=== PATIENT | female | born 1980 | race Caucasian/White ===

== ENCOUNTER 2022-12-15 07:49 | Outpatient (CLI) | payer OTHER, SELFPAY ==
--- NOTE | 2022-12-15 07:58 | ECG_ITS ---
Measurements Intervals [place] Rate: 71 P: 14 [place]: 162 QRS: 67 QRSD: 82 T: 39 QT: 372 QTc: 406 Interpretive Statements SINUS RHYTHM BASELINE ARTIFACT- V5-V6 NORMAL ECG NO PREVIOUS ECG AVAILABLE FOR COMPARISON Electronically Signed On 12-15-2022 10:28:19 CDT by Jarad Moody D.O.
[2022-12-15 08:49] LABS: Hematocrit 39.3 % (37.0-47.0); Hemoglobin 12.8 g/dL (12.0-15.0)
== END 2022-12-15 07:50 | disposition home or self-care (01) ==
PROVIDERS: Anesthesiology; Visit Provider Surgery Plastic and Reconstructive Surgery
DX: Z41.1 Encounter for cosmetic surgery (principal)
CPT/HCPCS: 36415; 85014; 85018; 93005

== ENCOUNTER 2022-12-18 00:50 | Day surgery (SDC) | payer OTHER, SELFPAY ==
[2022-12-10 15:33] VITALS: BMI 23.1
--- NOTE | 2022-12-10 15:37 | PC.NURSE ---
Report to the Outpatient Waiting Room, entrance under the green pavilion located off [facility], at time 6:30 on date 12/18/22. Planned Procedure Time: 8:30. Time changes happen often and if your time is changed the preop area will call you the afternoon before. - You and your visitor will be asked to self-screen and do not enter if you have any COVID symptoms. - A mask is optional within the hospital at this time. Patients may have clear liquids (water, carbonated beverages, clear teas, apple juice) until 3 hours prior to surgery (5:30) with a maximum of 20 ounces. - No food from midnight until time of surgery Take the following medications with a SIP of water the morning of surgery: NONE DO NOT STOP ANY OF YOUR OTHER PRESCRIPTION MEDICATIONS PRIOR TO SURGERY?EXCEPT THE FOLLOWING Medications to discontinue per physician: VITAMINS/SUPPLEMENTS Date to take last dose: 12/14/22 Please no make-up, nail micronesian, hairspray, perfume, deodorant, or body powder the day of surgery. No jewelry (including any body piercings) or valuables the day of surgery, leave them at home. Please take a shower or bath the night before, or the morning of, surgery with an antibacterial soap. Wear comfortable, loose fitting clothing. - Jewelry must be removed prior to entering the operating room. Rings and piercings that are not removed may be cut off. - The hospital will not accept responsibility for valuables. - Please leave all valuables, including medications, at home the day of surgery. If you are going home after surgery, a licensed [facility] driver must drive you home. - NO public transportation without another adult if you receive anesthesia. - We recommend that an adult stay with you for 24 hours following discharge. - We also recommend that you do not drive, make important decision, drink alcoholic beverages, or take any drugs that were not prescribed by your health care provider for at least 24 hours after your discharge time. Follow any additional instructions given to you from your surgeon. If you or anyone in your household have experienced Covid symptoms in the past week, please notify your surgeon or the nurse liaison at the phone number below for possible testing. Telephone instructions given to PT - AILEEN RICARDO and asked if any additional questions and then verbalized understanding. Patient advised to call surgeon office or pre surgery nurse liaison [phone] if any additional questions.
--- NOTE | 2022-12-17 11:38 | P.PNAN_ITS ---
Anes - Initial Pre Proc Eval Procedure: Operation Date: 12/18/22 08:30 Proposed Procedures p Abdominoplasty with Liposuction - Tj Venegas MD s Bilateral Breast Implant Exchange, - Tj Venegas MD s Bilateral Breast Mastopexy - Tj Venegas MD Date/Time: 12/17/22 11:38 Surgeon: Tj Venegas MD Pre Op Diagnosis: skin laxity Patient Data Age: 42 Gender: F Height: 1.63 m Weight: 61.25 kg Allergies Allergy/AdvReac Type Severity Reaction Status Date / Time codeine AdvReac Unknown Verified 12/10/22 15:32 Home Medications Medication Instructions Recorded Confirmed Type magnesium 250 mg tablet 250 mg PO DAILY 12/10/22 12/10/22 History multivitamin 1 tablet PO DAILY 12/10/22 12/10/22 History Patient hx anesthesia problems: none Family hx anesthesia problems: none Results Review: All pre-operative results and documents have been reviewed as part of the pre- operative evaluation. [facility] Social History Social History Smoking packs per day: 0.5 Smoking cigarettes per day: 10.0 Years smoked: 10 Smoking pack-years: 5.00 Smoking status: Former smoker Tobacco type: cigarettes Smoking end date: 08/02/17 Alcohol intake: current Drinks per week: 3 Substance use: never Substance use type: does not use Living arrangements: with family Additional living arrangements comments: CHILDREN Spiritual care concerns: No Anes - Eval Final PreProcedure Day of Procedure 12/17/22 11:38 Patient weight: normal Heart: regular rate and rhythm Lungs: clear to auscultation and normal air movement Airway: Mallampati scale class II Neurological: alert and oriented Last oral intake: >/= 8 hours ASA classification: II Emergent: no Anesthetic plan: proceed Anesthesia type and monitoring: general LMA Results Review: All pre-operative results and documents have been reviewed as part of the pre- operative evaluation. Informed Consent: The patient's anesthetic plan and its attendant risks and benefits were discussed with the patient/family/POA. Questions were solicited and answers provided to the satisfaction of the patient/family/POA.
[2022-12-18] VITALS (9 sets, daily range): BP systolic 99–130; BP diastolic 53–82; PULSE 71–118; RESP 13–20; TEMP 36.3–37.1; O2SAT 96–100; BMI 21.8
[2022-12-18 06:48] LABS: Urine Cotinine NEGATIVE
[2022-12-18] MEDS: LACTATED RINGERS 1,000 ML 30 ML IV CONT ×2 (07:05→14:57)
--- NOTE | 2022-12-18 08:41 | WPDHPUPDATE1 ---
History and Physical Update Update Date/Time: 12/18/22 08:41 History and Physical has been reviewed, including an updated exam of the patient. There are NO changes in the patient's condition. Risks, benefits, and alternatives have been discussed and questions answered. Patient agrees to proceed with procedure.
--- NOTE | 2022-12-18 08:41 | W.PM.PROC2 ---
Procedure Note - Detailed Date of Procedure 12/18/22 Pre-op Diagnosis skin laxity Post-op Diagnosis Same Procedure Performed 1. Bilateral breast implant exchange. 2. Bilateral breast mastopexy. 3. Progressive tension abdominoplasty with suction lipectomy. Surgeon Tj Venegas MD Anesthesia General Findings Previous Implants: 68-360 saline intact No seroma Thin capsule New Implants: Bilateral Natrelle Saline 360cc filled to 390 cc Right - REF# 68-360 SN [id number] Left - REF# 68-360 SN [id number] Tissue removed: 680.6 grams Lipoaspirate: 1,000 cc Description of Procedure They are here today for the above. Previously and again today the risks, benefits, alternatives were discussed in extensive detail. I wanted them to be very realistic about the risks involved as well as expectations. We discussed aftercare and what to monitor for. I was very upfront about the risks of wound breakdown leading to loss of skin, open wounds, NAC loss, complexity / risks of repeat mastopexy, and need for additional procedures with permanent abdominal deformity. We discussed DVT/PE risks and management. Made sure answered all of their questions to their satisfaction today and consent was obtained. They were marked in the preoperative holding area with their verification. The patient was taken to the operating room placed supine on the operating table. Anesthesia was provided by anesthesiology. A Ruiz catheter was started. They were prepped and draped in a standard sterile fashion. A surgical time-out was taken. Breast 1% lidocaine and 0.25% Marcaine with epinephrine was used to provide a field block. Tegaderm nipple husain were placed. Fifteen blade used at the IMF. Dissection was continued down until the capsules were identified and incised. Findings as above. I then copiously irrigated with 3 L of saline solution on TUR tubing. Verified strict hemostasis. I then irrigated with Betadine containing solution. Using a no-touch technique and a Sloan funnel the implant was introduced into the pocket. This was closed with 2-0 PDS I tailor tacked the breast into position. Placed her in a sitting position. Verified the nipple-areolar location based on preoperative planning as well as intraoperative observations and measurements in full agreement. She was placed supine. I de-epithelialized the pedicle. I then removed the inferior central portion of the breast need making sure the implant was well protected. I elevated medial and lateral tissue flaps as well for planned closure. I closed along the IMF with 2-0 Stratafix. Along the vertical with 2-0 PDS. I closed around the areola with 3-0 strata fix. 3-0 Monocryl along the vertical. 3-0 Stratafix along the IMF. I finally closed everything with running subcuticular 4-0 Monocryl and tissue glue. Abdomen I placed the patient in a flexed position to verify the upper and lower markings would reach. I then placed supine. A thorough abdominal examination was completed. Stab incisions were made and tumescent solution infiltrated. Once adequate time was allowed for hemostasis a 5mm basket and 3mm multihole cannula were utilized to complete suction lipectomy based on S.A.F.E. technique in multiple planes and passes. There were turned to bilateral lateral decubitus position with care taken to protect them for injury during this process. Suction lipectomy continued to result based on pre-operative planning, intra-operative observation, and rolling pinch test which were in full agreement. A 10 blade was used to make the upper incision. I continued dissection down to the level of fascia. Elevated just what was necessary for repair of the diastasis. I then again flexed the bed to verify the upper skin flap would reach the lower markings without tension. Once verified I placed her supine once again and a 10 blade used to make the lower incision. I elevated up to level the umbilicus and left t
[2022-12-18] MEDS: ceFAZolin 2 GM/D5W 50 ML 2 GM/50 ML BAG IVPB (08:56)
[2022-12-18] MEDS: TRANEXAMIC ACID 1,000MG/ISO100 1,000 MG/100 ML BAG 200 MG IVPB (08:56)
[2022-12-18] MEDS: NACL 0.9% IRRIG POUR BOTTLE 900 ML, GENTAMICIN SULFATE INJ 160 MG, CLINDAMYCIN PHOS INJ... IRRIGATION (09:33)
[2022-12-18] MEDS: LIDO 1%/EPINEPHRINE 1:100,000 20 ML VIAL 30 ML INFILTRATE (09:33)
[2022-12-18] MEDS: ceFAZolin SODIUM 1 GM VIAL IV PUSH (12:49)
[2022-12-18] MEDS: LACTATED RINGERS IRRIG 1,000 ML, LIDOCAINE HCL 1% LOCAL INJ 50 ML, EPINEPHrine HCL INJ ... INFILTRATE (13:13)
[2022-12-18] MEDS: BUPIVACAINE/EPINEPHRINE 0.5% 50 ML VIAL 60 ML INFILTRATE (13:21)
[2022-12-18] MEDS: HYDROmorphone HCL INJ (*CRX) 1 MG/ML SYR 0.25 MG IV PUSH (15:10)
[2022-12-18] MEDS: ONDANSETRON INJ 4 MG/2 ML VIAL IV PUSH (15:22)
--- NOTE | 2022-12-18 16:11 | PC.NURSE ---
This patient, Brianna Dunbar, was received from PACU on 12/18/22 at 1611. Patient/family oriented to unit policies and routines
[2022-12-18] MEDS: LACTATED RINGERS 1,000 ML 125 ML IV CONT ×2 (16:45→23:15)
[2022-12-18] MEDS: ENOXAPARIN 40 MG/0.4 ML SYRINGE SUB-Q (19:21)
[2022-12-18] MEDS: KETOROLAC 10 MG TABLET PO (19:21)
[2022-12-18] MEDS: carisoprodoL (*CRX) 350 MG TABLET PO (19:22)
[2022-12-18] MEDS: DOCUSATE SODIUM 100 MG CAPSULE PO (19:22)
[2022-12-19] MEDS: carisoprodoL (*CRX) 350 MG TABLET PO ×3 (01:00→13:24)
[2022-12-19] MEDS: KETOROLAC 10 MG TABLET PO ×3 (01:00→13:24)
[2022-12-19 04:30] VITALS: BP 94/51; PULSE 71; RESP 18; TEMP 37.1; O2SAT 97
[2022-12-19] MEDS: oxyCODONE/ACETAMINOPHEN (*CRX) 5-325 MG TABLET PO ×2 (04:43→16:56)
--- NOTE | 2022-12-19 06:58 | WPDPN ---
Progress Note: A&P Assessment and Plan (1) Encounter for cosmetic procedure: Code(s): Z41.1 - Encounter for cosmetic surgery Status: Acute Assessment and Plan: Doing well after bilateral breast implant exchange, mastopexy, and progressive tension abdominoplasty with suction lipectomy. Will discharge home when tolerating PO, ambulating, pain controlled. Today we had a lengthy discussion about the care. Activity limitations. What to monitor for. What is an emergency and when to dial 911 / proceed to the ER. Call with all other questions / concerns. Will see her back. Subjective Date/time seen: 12/19/22 06:58 Interval history: She is doing well after bilateral breast implant exchange, mastopexy, and progressive tension abdominoplasty with suction lipectomy. She has tolerated some PO. Pain controlled. Mild nausea when trying to get up. No emesis. No f/c. No SOB. No CP. No calf tenderness. Review of Systems Review of Systems: All systems reviewed & are unremarkable except as noted in HPI and below Exam Narrative: Alert & Oriented NOD Respiratory unlabored Bilateral breasts are soft. No signs of infection. No hematoma. No seroma. Good color / cap refill. Abdomen soft. No signs of infection. No hematoma. No seroma. Good color / cap refill. No calf tenderness. Negative Elizabet's Objective Data Vital Signs Vital Signs: Vital Signs - 24 hr 12/18/22 07:40 12/18/22 14:57 12/18/22 15:12 Temperature 36.7 C 36.6 C Pulse Rate 75 118 H 94 Respiratory Rate 16 15 13 Blood Pressure 102/74 130/82 120/79 Pulse Oximetry 100 100 100 Oxygen Delivery Room Air Simple Face Mask Simple Face Mask Oxygen Flow Rate 6 6 12/18/22 15:27 12/18/22 15:42 12/18/22 15:55 Temperature Pulse Rate 89 85 84 Respiratory Rate 20 16 17 Blood Pressure 122/81 117/80 119/78 Pulse Oximetry 98 97 98 Oxygen Delivery Room Air Room Air Room Air Oxygen Flow Rate 12/18/22 16:20 12/18/22 20:29 12/18/22 20:29 Temperature 36.3 C L 36.9 C Pulse Rate 79 71 71 Respiratory Rate 16 18 18 Blood Pressure 113/73 113/76 Pulse Oximetry 99 100 100 Oxygen Delivery Room Air Oxygen Flow Rate 12/18/22 23:36 12/18/22 23:36 12/19/22 04:30 Temperature 37.1 C Pulse Rate 79 79 71 Respiratory Rate 18 18 18 Blood Pressure 99/53 L Pulse Oximetry 96 96 97 Oxygen Delivery Room Air Room Air Oxygen Flow Rate 12/19/22 04:30 Temperature 37.1 C Pulse Rate 71 Respiratory Rate 18 Blood Pressure 94/51 L Pulse Oximetry 97 Oxygen Delivery Oxygen Flow Rate Intake/Output Intake/Output: Intake & Output 12/16/22 12/17/22 12/18/22 12/19/22 23:59 23:59 23:59 23:59 Intake Total 1750 200 Output Total 360 175 Balance 1390 25 Meds/Results Medications: Active Medications Generic Name Dose Route Start Last Admin Trade Name Freq PRN Reason Stop Dose Admin Carisoprodol 350 mg 12/18/22 18:00 12/19/22 01:00 Carisoprodol (*Crx) 350 Mg Tablet PO 350 mg Q6HR SAMSON Administration Diazepam 5 mg 12/18/22 14:44 Diazepam (*Crx) 5 Mg Tablet PO TID PRN Anxiety Docusate Sodium 100 mg 12/18/22 21:00 12/18/22 19:22 Docusate Sodium 100 Mg Capsule PO 100 mg Q12HR SAMSON Administration Enoxaparin Sodium 40 mg 12/18/22 20:00 12/18/22 19:21 Enoxaparin 40 Mg/0.4 Ml Syringe SUB-Q 40 mg DAILY SAMSON Administration Lactated Ringer's 1,000 mls @ 125 mls/hr 12/18/22 14:45 12/19/22 04:30 Lr - Lactated Ringers Iv IV CONT 0 mls/hr .Q8H SAMSON Infusion Ketorolac Tromethamine 10 mg 12/18/22 18:00 12/19/22 01:00 Ketorolac 10 Mg Tablet PO 12/20/22 12:01 10 mg Q6HR SAMSON Administration Morphine Sulfate 2 mg 12/18/22 14:44 Morphine Sulfate (*Crx) 2 Mg/Ml Inj IV PUSH Q2H PRN Pain Ondansetron HCl 4 mg 12/18/22 14:44 Ondansetron Inj 4 Mg/2 Ml Vial IV PUSH Q6H PRN Nausea Oxycodone/Acetaminophen 1 - 2 tablet 12/18/22 14:44 05/
--- NOTE | 2022-12-19 07:02 | P.DS_ITS ---
DS: Admitting Diagnosis Discharge Date 12/19/2022 Admitting Diagnosis Encounter cosmetic surgery DS: Discharge Diagnosis Discharge Diagnosis (1) Encounter for cosmetic procedure: Code(s): Z41.1 - Encounter for cosmetic surgery Status: Acute DS: Summary Hospital Course Hospital Course: Post-op bilateral breast implant exchange, mastopexy, and progressive tension abdominoplasty with suction lipectomy has done well. Will plan for discharge home. Time Spent with Patient Time attestation: Total time spent providing and/or coordinating discharge services: Exam Narrative: Alert & Oriented NOD Respiratory unlabored Bilateral breasts are soft. No signs of infection. No hematoma. No seroma. Good color / cap refill. Abdomen soft. No signs of infection. No hematoma. No seroma. Good color / cap refill. No calf tenderness. Negative Elizabet's Discharge Plan Discharge Patient Disposition: Home, Self-Care Discharge Instructions: POST OPERATIVE DISCHARGE INSTRUCTIONS TJ VENEGAS M.D. [facility] [address] [place] [address] * No driving for 24 hours after anesthesia and while you are taking pain me dication. * Take all prescribed medication as directed * Diet as tolerated. * No lifting or activity that raises blood pressure for 48 hours. * Regular walking / ambulation. * May shower 24 hours after surgery. Once you shower do not take pain medication before showering as the combination of medication and heat may cause you to feel dizzy or pass out. * No pools or tubs for 2 weeks. * Slowly stand up straight as tolerated. * No straining or lifting more than 20 pounds. * If no bowel movement within 24 hours may use laxative. * Call with any questions or concerns. * Dressing Care: Continue abdominal binder / foam and surgical bra 23 hours per day. If you have any questions or concerns, please call the office . If it is after hours you will be directed to the lieutenant colonel exchange. Shortness of breath, chest pain, or other medical emergency dial 911 / proceed to the Emergency Room. Stand Alone Forms: General Discharge Instructions Follow-up/Referrals: Tj Venegas MD [Physician] - 1 Week Discharge Medications: Continued multivitamin Tablet 1 tablet PO DAILY magnesium 250 mg Tablet 250 mg PO DAILY
--- NOTE | 2022-12-19 07:02 | PM.DS ---
DS: Admitting Diagnosis Discharge Date 12/19/2022 Admitting Diagnosis Encounter cosmetic surgery DS: Discharge Diagnosis Discharge Diagnosis (1) Encounter for cosmetic procedure: Code(s): Z41.1 - Encounter for cosmetic surgery Status: Acute DS: Summary Hospital Course Hospital Course: Post-op bilateral breast implant exchange, mastopexy, and progressive tension abdominoplasty with suction lipectomy has done well. Will plan for discharge home. Time Spent with Patient Time attestation: Total time spent providing and/or coordinating discharge services: Exam Narrative: Alert & Oriented NOD Respiratory unlabored Bilateral breasts are soft. No signs of infection. No hematoma. No seroma. Good color / cap refill. Abdomen soft. No signs of infection. No hematoma. No seroma. Good color / cap refill. No calf tenderness. Negative Elizabet's Discharge Plan Discharge Patient Disposition: Home, Self-Care Discharge Instructions: POST OPERATIVE DISCHARGE INSTRUCTIONS TJ VENEGAS M.D. [facility] [address] [place] [address] [address] for 24 hours after anesthesia and while you are taking pain medication. Take all prescribed medication as directed Diet as tolerated. No lifting or activity that raises blood pressure for 48 hours. Regular walking / ambulation. May shower 24 hours after surgery. Once you shower do not take pain medication before showering as the combination of medication and heat may cause you to feel dizzy or pass out. No pools or tubs for 2 weeks. Slowly stand up straight as tolerated. No straining or lifting more than 20 pounds. If no bowel movement within 24 hours may use laxative. Call with any questions or concerns. Dressing Care: Continue abdominal binder / foam and surgical bra 23 hours per day. If you have any questions or concerns, please call the office . If it is after hours you will be directed to the supervisor mirror fabrication exchange. Shortness of breath, chest pain, or other medical emergency dial 911 / proceed to the Emergency Room. Stand Alone Forms: General Discharge Instructions Follow-up/Referrals: Tj Venegas MD [Physician] - 1 Week Discharge Medications: Continued multivitamin Tablet 1 tablet PO DAILY magnesium 250 mg Tablet 250 mg PO DAILY
[2022-12-19 08:00] VITALS: BP 91/57; PULSE 72; RESP 16; TEMP 36.8; O2SAT 100
[2022-12-19] MEDS: ENOXAPARIN 40 MG/0.4 ML SYRINGE SUB-Q (09:50)
[2022-12-19] MEDS: ONDANSETRON INJ 4 MG/2 ML VIAL IV PUSH ×2 (09:50→16:56)
[2022-12-19] MEDS: DOCUSATE SODIUM 100 MG CAPSULE PO (09:50)
--- NOTE | 2022-12-19 10:00 | PC.NURSE ---
RN Kyra Bautista at bedside. Pt attempted to ambulate to bathroom, but complained of dizziness and nausea. Pt was immed put back to bed and fluids restarted. The amount of LR infused in pts current bad of LR was undocumented, so a new bag was started as ordered (125ml/hr). 500ml infused total. At 1400 pts output was adequate, so infusion was ended.
--- NOTE | 2022-12-19 10:08 | WPDANESPN ---
Anes - Prog Note Post-Op Date/Time: 12/19/22 10:08 Cardiovascular status: normal Respiratory status: normal Airway patency: baseline Mental status: baseline Post-Op hydration status: normal Vital Signs: Last Vital Signs Temp 98.7 F 12/19/22 04:30 Pulse 71 12/19/22 04:30 Resp 18 12/19/22 04:30 BP 94/51 L 12/19/22 04:30 Pulse Ox 97 12/19/22 04:30 O2 Del Method Room Air 12/19/22 04:30 O2 Flow Rate 6 12/18/22 15:12 Pain Score (VAS): 4 I/O: Intake & Output 12/18/22 12/19/22 12/19/22 23:59 07:59 15:59 Intake Total 1400 200 Output Total 300 175 Balance 1100 25 Post-procedural complaints: nausea (pt sitting at side off bed, nurse at bedside. pt experiencing severe nausea, no emesis. assisted nurse in getting pt back to bed. pt does not respond to questioning regarding postop complications or if taking oral fluids. nurse states pt has not had meds for nausea & ivf will be resumed ) Patient Feedback: Patient satisfied with anesthetic care.
[2022-12-19 12:00] VITALS: BP 101/68; PULSE 68; RESP 16; TEMP 36.6; O2SAT 97
[2022-12-19 16:00] VITALS: BP 100/62; PULSE 74; RESP 16; TEMP 36.5; O2SAT 98
== END 2022-12-19 18:25 | disposition home or self-care (01) ==
LOC: ANHSURGERY 08:49 → ANHOB2 16:05
PROVIDERS: Visit Provider Surgery Plastic and Reconstructive Surgery
PROC: (CPT 19316; principal; 2022-12-18 08:30)
PROC: (CPT 19316; 2022-12-18 08:30)
PROC: (CPT 19316; 2022-12-18 08:30)
DX: Z41.1 Encounter for cosmetic surgery (principal); L57.4 Cutis laxa senilis; Z87.891 Personal history of nicotine dependence
CPT/HCPCS: 19316; 19325; 15877; 15830; 15847; 80307; 99199; A9270; J0171; J0690; J1170; J1580; J1650; J2250; J2405; J3010; J7030; J7120